=== PATIENT | female | born 1965 | race Caucasian/White ===

== ENCOUNTER 2020-11-20 12:04 | Emergency (ER) | payer SELFPAY ==
[2020-11-20 12:26] VITALS: BP 119/77; PULSE 85; RESP 18; TEMP 36.8; O2SAT 96; BMI 25.5
--- NOTE | 2020-11-20 12:35 | XR_ITS ---
WS: [id number] Left hand, 3 views, 11/20/2020 Clinical Data: 5th digit jammed/dislocated Comparison: None. Findings: There is a dislocation of the middle phalanx of the fifth finger posteriorly from the proximal phalan x.The remainder of the hand shows no fractures or dislocations. 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 XR/XR hand LT min 3V* [id number] Impression: Dislocation of the fifth finger middle phalanx.
--- NOTE | 2020-11-20 12:36 | ED_ITS ---
HPI - Extremity Problem General: Chief complaint: Extremity Injury, Upper Stated complaint: L hand finger Bent, Pain Time Seen by Provider: 11/20/20 12:35 History of Present Illness: HPI Narrative: Patient is a 55-year-old female comes to the ED with a jammed fifth digit on left hand. Patient says she jammed her finger on dog pen just prior to arrival. Fifth digit appears deformed and dislocated. Denies any other injury or pain. Associated symptoms: Deny chest pain, fever(s) or rash Review of Systems Const: Denies: fever(s), chills or fatigue Eyes: Denies: change in vision or eye discomfort ENMT: Denies: throat pain, odynophagia, nasal discharge or nasal congestion Card: Denies: chest pain, palpitations, edema, swelling of feet/ankles, dyspnea on exertion or orthopnea Resp: Denies: dyspnea, productive cough or non-productive cough GI: Denies: abdominal pain, nausea, vomiting, diarrhea, constipation or hematochezia : Denies: flank pain, dysuria or hematuria Musc: Reports: extremity pain (left hand-5th digit) and deformity (dislocated 5th digit on left hand); Denies: neck pain, back pain or extremity swelling Skin/Breast: Denies: rash or new lesions Neuro: Denies: headache(s), numbness in extremities or weakness in extremities Physical Exam Const: COMMON NORMALS: no acute distress, patient oriented x3 and alert GENERAL APPEARANCE: cooperative and comfortable HENMT: COMMON NORMALS: normocephalic HEAD & SCALP: normocephalic MOUTH: Normal oral and palatal mucosa present THROAT: posterior oropharynx normal and uvula midline Neck/C-Spine: COMMON NORMALS: supple GENERAL: Yes normal visual inspection Resp: COMMON NORMALS: normal respiratory effort, No retractions, No use of accessory muscles and clear to auscultation bilaterally AUSCULTATION: clear to auscultation bilaterally Cardio: COMMON NORMALS: regular rate, regular rhythm, S1 normal heart sound p resent, S2 normal heart sound present, No gallops present (Cardio), No clicks present (Cardio), No murmurs present (Cardio) and Peripheral pulses 2+ throughout RATE: regular rate RHYTHM: regular rhythm HEART SOUNDS: S1 normal heart sound present and S2 normal heart sound present PERIPHERAL PULSES: Peripheral pulses 2+ throughout GI: COMMON NORMALS: Normal to inspection, nondistended, normoactive bowel sounds present, Soft to palpation, non-tender and no masses PALPATION: Yes Soft to palpation : COMMON NORMALS: Yes no CVA tenderness BLADDER/KIDNEY EXAM: Yes no CVA tenderness Back/Pelvis: COMMON NORMALS: no CVA tenderness Extremity: LEFT UPPER EXTREMITY: Yes hand & digits Left hand and digits: Yes inspection (Fifth digit has deformity at PIP joint), Yes palpation (tender upon palpation of 5th digit), Yes ROM (limited due to pain) and Yes neurovascular exam (intact) Neuro: COMMON NORMALS: patient oriented x3 and moves all extremities SENSORIUM/ORIENTATION: Yes alert Skin: GENERAL SKIN EXAM: dry skin Procedures Nerve Block Nerve Block 1: Time out performed: Yes Local Anesthetic: lidocaine 2% Amount of anesthesia used (mL): 10 Side: left Nerve Blocks: digital (5th digit) Procedure Successful: Yes Patient Tolerated Procedure: well Complications: none Orthopedic Joint Reduction Joint #1: Time Out Performed: Yes Side: left Joint Reduction Location: finger (5th digit-dislocation of middle phalanx) Analgesia: nerve block (5th digit-lidocaine 2%) Technique used: direct manipulation Post-reduction neuro exam: intact Post-reduction vascular: intact Post Reduction X-Ray Obtained: Yes Post Reduction X-Ray Results: reduced Splint Applied: Yes Patient Tolerated Procedure: well Course Vital Signs: Vital signs: Vital Signs Temperature 98.2 F 11/20/20 12:26 Pulse Rate 85 11/20/20 12:26 Respiratory Rate 18 11/20/20 12:26 Blood Pressure 119/77 11/20/20 12:26 Pulse Oximetry 96 11/20/20 12:26 MDM - Extremity (Nontraumatic) MDM Narrative: Medical decision making narrative: Patient is a 55-year-old female comes to the ED with an injury and deformity to left fifth digit of hand. X-ray of the left hand shows a fifth digit posterior dislocation of the middle phalanx. Neurovascular intact. Digital block was performed with lidocaine 2% on the fifth digit and then I was able to manually manipulate and reduce dislocation. Post reduction x-rays showed successful reduction. Patient was put in a finger splint and discharged home. She was told to follow-up with her primary care doctor in a week for reevaluation. Return to ED precautions given. Patient did not want any narcotic pain meds and says she will just take [id number] Tylenol or ibuprofen for pain. Patient understood and agreed with plan. Imaging Data^: Xray Ortho: Attestation: I personally reviewed and interpreted this imaging study as follows: Radiologist's impression: [address] [place] [address] XRay Report Signed Patient: Eleonora Rojas Unit #: [id number] : [id number] Age/Sex: 55 / F ADM Date: 11/20/20 Loc: ER Room/Bed: Attending Dr: Ordering Provider/Ordering MD: Tonny Ordaz Date of Service: 11/20/20 Procedure(s): XR hand LT min 3V* 29966 Accession Number(s): [id number] Report Number: [id number] WS: [id number] Left hand, 3 views, 11/20/2020 Clinical Data: 5th digit jammed/dislocated Comparison: None. Findings: There is a dislocation of the middle phalanx of the fifth finger posteriorly from the proximal phalanx.The remainder of the hand shows no fractures or dislocations. There is osteoarthritis at the base of the left first metacarpal. XR/XR hand LT min 3V* 14880 Impression: Dislocation of the fifth finger middle phalanx. Dictated By: Hailey Simmons MD Signed By: Hailey Simmons MD Signed Date/Time: 11/20/20 124 DD/ 1248 Discharge Plan Discharge Patient Disposition: Home Clinical Impression: Dislocation of finger Qualifiers: Encounter type: initial encounter Qualified Code(s): S63.259A - Unspecified dislocation of unspecified finger, initial encounter Condition: Stable Discharge Orders: Discharge ED (Routine); Ordered 11/20/20 Ordered By: Tonny Ordaz Discharge Diet: Regular Discharge Activity: Limit activity as instructed Patient Instructions: Finger Dislocation (ED) Activity Restrictions/Additional Instructions: Follow-up with medical provider as directed in 7 to 10 days for reevaluation. Wear cally tape or finger splint daily until reevaluated by PCP in 7 to 10 days. Take [id number] Tylenol or Motrin for pain. Apply cold pack on finger to help with swelling and symptoms as well. Return to the ER or your medical provider if condition worsens. Please read and understand discharge instructions. Thank you for choosing [facility] for your healthcare needs today. Please realize this is an emergency room and that we are providing you with a medical screening exam and this may not be complete and all inclusive of all the testing and or work up that you may need to determine your ailment or severity of your illness. It is very important that you follow up as instructed or that you return to the Emergency Department should you have concerns or if your condition changes or worsens in any way. Coding Level of Care Code ED [employer] for [facility]al[facility] Exam Comprehensive
[2020-11-20] MEDS: lidocaine 2% INJ 20 mL INJECTION (13:01)
--- NOTE | 2020-11-20 13:08 | XR_ITS ---
WS: [id number] Left hand, 3 views, 11/20/2020, 1311 hours Clinical Data: post reduction x-ray Comparison: Left hand, 11/20/2020, 1238 hours. Findings: The left fifth finger middle phalanx dislocation has been reduced. No fractures are seen. XR/XR hand LT 2V [id number] Impression: Reduction of left fifth finger middle phalanx dislocation.
== END 2020-11-20 13:52 | disposition home or self-care (01) ==
PROVIDERS: Emergency Provider Physician Assistant
DX: S63.277A Dislocation of unspecified interphalangeal joint of left little finger, initial encounter (principal); W22.8XXA Striking against or struck by other objects, initial encounter
CPT/HCPCS: 26770; 73120; 73130; 99282